=== PATIENT | female | born 1950 | race Two or more races ===

== ENCOUNTER → 2016-07-27 | Outpatient (CLI) | payer MEDICARE, OTHER ==
--- NOTE | 2016-07-27 17:10 | RADRPT ---
PROCEDURE: XR Pelvis and Hips. CLINICAL INDICATION: Pelvic pain. Bilateral hip pain. TECHNIQUE: Five views. Frontal pelvis. Frontal and lateral right hip. Frontal and lateral left hip. COMPARISON: No prior studies are available for comparison. FINDINGS: There is no fracture or dislocation. The soft tissues are normal. There are degenerative changes of the hips with osteophytes noted. There is no joint space narrowin g. There is no lytic or blastic lesion. Surgical clips are present in the right inguinal region. IMPRESSION: 1. Mild degenerative changes of both hips. 2. Prior right inguinal surgery. RPTAT: QQ .Margarito Griffin MD, MD Date Time Electronically viewed and signed by .Margarito Griffin MD, MD on 07/27/2016 17:09 .R/
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
== END | disposition home or self-care (01) ==
LOC: HKI 14:18
DX: M54.5 Low back pain (principal)
CPT/HCPCS: 73521; G0463